=== PATIENT | female | born 1975 | race Caucasian/White ===

== ENCOUNTER 2022-02-16 18:32 | Emergency (ER) | payer SELFPAY ==
--- OUTSIDE RECORDS SUMMARY | 2022-02-16 18:36 | XMS REPORT | Continuity of Care Document ---
:1975 Author Organization [facility] t Address [address] [place] [address] Care Team Providers Name Role Phone Klever Attending Clinician Unavailable LUCA Attending Clinician Unavailable Klever Admitting Clinician Unavailable LUCA Admitting Clinician Unavailable Payers Payer Name Policy Type Policy Number Effective Date Expiration Date S ource Problems Condition Condition Condition Status Onset Resolution Last Treating Co mments Source Name Details Category Date Date Treatment Clinician Date Benign Benign Problem Active [place] paroxysmal Paroxysmal 5-24 da positional Positional 00:00: [facility] vertigo Vertigo 00 al [facility] Blood in Blood in Problem Active [place] urine Urine 5-24 da 00:00: [facility] Postural Postural Problem Active [place] dizziness Dizziness 5-24 da 00:00: [facility] Easy Easy Problem Active [place] bruising Bruising 5-24 da 00:00: [facility] Hypertensi Hypertensi Problem Active [facility] ve ve 1-18 da disorder Disorder 00:00: [facility] p 00 al [facility] Body mass Body Mass Problem Active 2020-03 [place] index 30+ Index 30+ 0-26 da - obesity - Obesity 00:00: Epis buffer copper 00 al [facility]re[facility] Dissection Dissection Problem Active 2020-03 M [place] of of 0-26 da abdominal Abdominal 00:00: Ep[facility] buffer copper aorta Aorta 00 al [facility] Shoulder Shoulder Problem Active 2020-03 [place] pain Pain 0-26 da 00:00: [facility] Injury of Injury of Problem Active [place] abdominal Abdominal 7-18 da aorta Aorta 00:00: [facility] Hyperlipid Hyperlipid Problem Active [facility] [place] emia emia 3-30 da 00:00: [facility] Stress Stress Problem Active [place] 3-29 da 00:00: [facility] Hypothyroi Hypothyroi Problem Active [facility] [place] dism dism 1- da 00:00: [facility] Obesity Obesity Problem Active [place] [facility] Allergies, Adverse Reactions, Alerts This patient has no known allergies or adverse reactions. Social History Smoking Status Start Date Stop Date Source Light Tobacco Smoker [facility] Medications Ordered Filled Start Stop Current Ordering Indication Dosage Frequency Signature Comments Components Source Medication Medication Date Date Medication? Clinician (SIG) Name Name acetaminoph acetaminoph 2020-03 No 650mg acetaminop [place] en 325 mg en 325 mg 0-26 hen 325 mg da tablet 650 tablet 650 00:00: tablet 650 [facility] mg by oral mg by oral 00 mg by oral al route. route. route. [facility] Outre[facility] Program Ala-Hist IR Ala-Hist IR No Ala-Hist [place] 2 mg tablet 2 mg tablet IR 2 mg da TAKE 1 TAKE 1 tablet [facility] TABLET BY TABLET BY TAKE 1 al MOUTH EVERY MOUTH EVERY TABLET BY Health 6 HOURS 6 HOURS MOUTH Ou treac NEEDED NEEDED EVERY 6 h HOURS Program NEEDED aspirin 81 aspirin 81 No aspirin 81 [place] mg chewable mg chewable mg d a tablet CHEW tablet CHEW chewable [facility] AND SWALLOW AND SWALLOW tablet al 1 TABLET BY 1 TABLET BY CHEW AND Health MOUTH DAILY MOUTH DAILY SWALLOW 1 Outreac TABLET BY h MOUTH Program DAILY clonidine clonidine No 1 Q1D clonidine [place] HCl 0.1 mg HCl 0.1 mg HCl 0.1 mg da tablet Take tablet Take tablet [facility] 1 tablet 1 tablet Take 1 al every day every day tablet Hea lth by oral by oral every day Outr eac route as route as by oral h directed. directed. route as P rogram directed. Debrox 6.5 Debrox 6.5 No Debrox 6.5 [place] % ear drops % ear drops % ear da INSTILL INSTILL drops [facility] 5-10 DROPS 5-10 DROPS INSTILL al INTO INTO 5-10 DROPS Health AFFECTED AFFECTED INTO Outreac EAR(S) BY EAR(S) BY AFFECTED h OTIC ROUTE OTIC ROUTE EAR(S) BY Program 2 TIMES PER 2 TIMES PER OTIC ROUTE DAY FOR 4 DAY FOR 4 2 TIMES DAYS DAYS PER DAY FOR 4 DAYS FeroSul 325 FeroSul 325 No FeroSul [place] mg (65 mg mg (65 mg 325 mg (65 da iron) iron) mg iron) [facility] tablet TAKE tablet TAKE tablet al 1 TABLET BY 1 TABLET BY TAKE 1 Health MOUTH EVERY MOUTH EVERY TABLET BY Outreac OTHER DAY OTHER DAY MOUTH h IN MORNING IN MORNING EVERY Pr ogram OTHER DAY IN MORNING levothyroxi levothyroxi No levothyrox [place] ne 75 mcg ne 75 mcg ine 75 mcg da tablet TAKE tablet TAKE tablet [facility] 1 TABLET BY 1 TABLET BY TAKE 1 al MOUTH EVERY MOUTH EVERY TABLET BY Health DAY FOR 45 DAY FOR 45 MOUTH Ou treac DAYS DAYS EVERY DAY h DIRECTED DIRECTED FOR 45 Progr am DAYS DIRECTED lisinopril lisinopril No lisinopril [place] 20 mg 20 mg 20 mg da tablet TAKE tablet TAKE tablet [facility] 1 TABLET BY 1 TABLET BY TAKE 1 al MOUTH EVERY MOUTH EVERY TABLET BY Health DAY DAY MOUTH Outreac DIRECTED DIRECTED EVERY DAY h Program DIRECTED meclizine meclizine No .5 Q6H meclizine [place] 25 mg 25 mg 25 mg da tablet Take tablet Take tablet [facility] 0.5 tablets 0.5 tablets Take 0.5 al every 6 every 6 tablets Health hours by hours by every 6 Outr eac oral route oral route hours by h as needed. as needed. oral route Program as needed. metoprolol metoprolol No metoprolol [place] tartrate 25 tartrate 25 tartrate da mg tablet mg tablet 25 mg Epis buffer copper TAKE 1/2 TAKE 1/2 tablet al TABLET BY TABLET BY TAKE 1/2 H ealth MOUTH TWICE MOUTH TWICE TABLET BY Outreac DAILY DAILY MOUTH h TWICE Program DAILY paroxetine paroxetine No paroxetine [place] ER 25 mg ER 25 mg ER 25 mg da tablet,exte tablet,exte tablet,ext [facility] nded nded ended al release 24 release 24 release 24 Health hr TAKE 2 hr TAKE 2 hr TAKE 2 Outreac TABLETS BY TABLETS BY TABLETS BY h MOUTH EVERY MOUTH EVERY MOUTH Program DAY AT DAY AT EVERY DAY BEDTIME BEDTIME AT BEDTIME rosuvastati rosuvastati No rosuvastat [place] n 10 mg n 10 mg in 10 mg da tablet TAKE tablet TAKE tablet [facility] 1 TABLET BY 1 TABLET BY TAKE 1 al MOUTH EVERY MOUTH EVERY TABLET BY Health DAY DAY MOUTH Outreac DIRECTED DIRECTED EVERY DAY h Program DIRECTED venlafaxine venlafaxine No 1capsul Q1D venlafaxin [place] ER 75 mg ER 75 mg e(s) e ER 75 mg d a capsule,ext capsule,ext capsule,ex [facility] ended ended tended al release 24 release 24 release 24 Health hr Take 1 hr Take 1 hr Take 1 Outreac capsule capsule capsule h every day every day every day Program by oral by oral by oral route as route as route as directed. directed. directed. Immunizations Ordered Immunization Filled Immunization Date Status Commen ts Source Name Name pneumococcal pneumococcal 2020-07-02 Completed [facility] polysaccharide PPV23 polysaccharide PPV23 10:54:25 [facility] Tdap Tdap 2020-07-02 Completed [facility] 10:53:29 [facility] Vital Signs Vital Name Observation Time Observation Value Comments Source BP Diastolic 2021-09-10 00:00:00 74 mm[Hg] [facility] Height 2021-09-10 00:00:00 59 [in_i] [facility] BMI (Body Mass 2021-09-10 00:00:00 [facility] BP Systolic 2021-09-10 00:00:00 135 mm[Hg] [facility] Body Weight 2021-09-10 00:00:00 2611 [oz_av] [facility] BP Diastolic 2021-07-27 00:00:00 80 mm[Hg] [place] [facility] Height 2021-07-27 00:00:00 59 [in_i] [place] [facility] BMI (Body Mass 2021-07-27 00:00:00 32.5 kg/m2 [place] [facility] Index) [facility] BP Systolic 2021-07-27 00:00:00 132 mm[Hg] [place] [facility] Body Weight 2021-07-27 00:00:00 2576 [oz_av] [place] [facility] BP Diastolic 2021-05-14 00:00:00 64 mm[Hg] [place] [facility] Height 2021-05-14 00:00:00 59 [in_i] [place] [facility] BMI (Body Mass 2021-05-14 00:00:00 31.9 kg/m2 [facility] BP Systolic 2021-05-14 00:00:00 112 mm[Hg] [place] [facility] Body Weight 2021-05-14 00:00:00 2528 [oz_av] [place] [facility] BP Diastolic 2021-02-17 00:00:00 74 mm[Hg] [place] [facility] Height 2021-02-17 00:00:00 59 [in_i] [place] [facility] BMI (Body Mass 2021-02-17 00:00:00 30.5 kg/m2 [facility] BP Systolic 2021-02-17 00:00:00 116 mm[Hg] [place] [facility] Body Weight 2021-02-17 00:00:00 2416 [oz_av] [place] [facility] BP Diastolic 2021-01-01 00:00:00 52 mm[Hg] [place] [facility] Height 2021-01-01 00:00:00 59 [in_i] [place] [facility] BMI (Body Mass 2021-01-01 00:00:00 30.5 kg/m2 [place] [facility] BP Systolic 2021-01-01 00:00:00 101 mm[Hg] [place] [facility] Body Weight 2021-01-01 00:00:00 2416 [oz_av] [place] [facility] BP Diastolic 2020-11-02 00:00:00 74 mm[Hg] [place] [facility] Height 2020-11-02 00:00:00 59 [in_i] [place] [facility] BMI (Body Mass 2020-11-02 00:00:00 30.5 kg/m2 [facility] BP Systolic 2020-11-02 00:00:00 145 mm[Hg] [place] [facility] Body Weight 2020-11-02 00:00:00 151 [lb_av] [place] [facility] BP Diastolic 2020-10-26 00:00:00 80 mm[Hg] [place] [facility] Height 2020-10-26 00:00:00 59 [in_i] [place] [facility] BMI (Body Mass 2020-10-26 00:00:00 30.3 kg/m2 [facility] Index[facility] BP Systolic 2020-10-26 00:00:00 130 mm[Hg] [place] [facility] Body Weight 2020-10-26 00:00:00 2400 [oz_av] [place] [facility] BP Diastolic 2020-10-01 00:00:00 72 mm[Hg] [place] [facility] Height 2020-10-01 00:00:00 59 [in_i] [place] [facility] BMI (Body Mass 2020-10-01 00:00:00 30.8 kg/m2 [facility] BP Systolic 2020-10-01 00:00:00 126 mm[Hg] [place] [facility] Body Weight 2020-10-01 00:00:00 2437 [oz_av] [place] [facility] BP Diastolic 2020-08-18 00:00:00 82 mm[Hg] [place] [facility] Height 2020-08-18 00:00:00 59 [in_i] [place] [facility] BMI (Body Mass 2020-08-18 00:00:00 31.9 kg/m2 [facility] BP Systolic 2020-08-18 00:00:00 132 mm[Hg] [place] [facility] Body Weight 2020-08-18 00:00:00 2528 [oz_av] [place] [facility] BP Diastolic 2020-07-02 00:00:00 78 mm[Hg] [place] [facility] Height 2020-07-02 00:00:00 59 [in_i] [place] [facility] BMI (Body Mass 2020-07-02 00:00:00 34.3 kg/m2 [facility] BP Systolic 2020-07-02 00:00:00 124 mm[Hg] [place] [facility] Body Weight 2020-07-02 00:00:00 2720 [oz_av] [facility] BP Diastolic 2020-06-01 00:00:00 90 mm[Hg] [place] [facility] Height 2020-06-01 00:00:00 59 [in_i] [place] [facility] BMI (Body Mass 2020-06-01 00:00:00 36.4 kg/m2 [facility] Index[facility] BP Systolic 2020-06-01 00:00:00 140 mm[Hg] [place] [facility] Body Weight 2020-06-01 00:00:00 2880 [oz_av] [facility] Procedures Procedure Date / Time Performed Performing Clinician Sourc e MAMMO, screening, 2021-09-10 00:00:00 [facility] digital, bilateral Health Outrea Program MAMMO, screening, 2020-07-02 00:00:00 [facility] digital, bilateral Health Outrea ch Program ELECTROCARDIOGRAM, 2020-06-01 00:00:00 [facility] COMPLETE [facility] Out[facility] Program XR, hand 2020-06-01 00:00:00 [facility] Section [facility] Endometrial Ablation [facility] Plan of Care Planned Activity Planned Date Details Comments Source Future Scheduled 2021-09-14 CBC w/ auto diff [code [place] Test 00:00:00 = CBC w/ auto diff] [facility] Future Scheduled 2021-09-14 CMP, serum or plasma [place] Test 00:00:00 [code = CMP, serum or [facility] plasma] Outreach Progra m Diagnostic Test 2021-09-10 fecal occult blood, [place] Pending 00:00:00 immunoassay, stool [facility] [code = fecal occult Outreac h Program blood, immunoassay, stool] Diagnostic Test 2021-09-10 erythrocyte [facility] Pending 00:00:00 sedimentation rate by [facility] westergren method Outreach P rogram [code = erythrocyte sedimentation rate by westergren method] Future Appointment 2022-03-13 Codie Pizano 1700 [place] 00:00:00 Ajith Vargas; [place] [address] Outreach Program Future Appointment 2022-03-11 Codie Pizano 1700 [place] 14:00:00 Ajith Vargas; [place] [id number] Outreach Program Encounters Start End Encounter Admission Attending Care Care Encounter Source Date/Time Date/Time Type Type Clinicians Facility Department ID 2022-02-01 2022-02-01 Outpatient Klever CARBAJAL [facility] [id number] [place] 00:00:00 00:00:00 [id number] [facility] 2021-09-22 2021-09-22 Outpatient Klever CARBAJAL [facility] [id number] [place] 12:29:00 12:29:00 0720 [facility] 2021-09-20 2021-09-20 Outpatient Nguyen_Tho NCHOP N[facility]OP [id number] [place] 02:45:00 02:45:00 0718 [facility] 2021-09-17 2021-09-17 Outpatient Nguyen_Tho MEHOP NCHOP [id number] [place] 04:58:00 04:58:00 0715 da [facility] 2021-09-11 2021-09-11 Outpatient Nguyen_Tho NCHOP N[facility] [id number] [place] 08:27:00 08:27:00 0709 da [facility] 2021-09-10 2021-09-10 Outpatient Nguyen_Tho NCHOP [facility] [id number] [place] 04:53:00 04:53:00 0708 da [facility] 2021-09-10 2021-09-10 [facility] [place] - [id number] [place] 00:00:00 00:00:00 Lanie Pizano APRN-MUFF WINDER-C: [facility] Epi scop [address] [facility] [phone] Jong iverson , Ph. 2021-09-09 2021-09-09 Outpatient Nguyen_Tho NCHOP [facility] [id number] [place] 04:12:00 04:12:00 0707 da [facility] 2021-08-25 2021-08-25 Outpatient Nguyen_Tho NCHOP [facility] [id number] [place] 04:12:00 04:12:00 0622 [facility] 2021-07-27 2021-07-27 Outpatient Nguyen_Tho NCHOP [facility] [id number] [place] 10:40:00 10:40:00 0524 [facility] 2021-07-27 2021-07-[address] [facility] [place] - [id number] [place] 00:00:00 00:00:00 Lanie Pizano da SUBCONTRACT MANAGER-MUFF WINDER-C: [facility] [address] [facility] [address], [facility] [phone] [facility] , Ph. 2021-07-25 2021-07-25 Outpatient Nguyen_Tho [facility] [id number] [place] 11:16:00 11:16:00 0522 [facility] 2021-07-13 2021-07-13 Outpatient Nguyen_Tho [place] [id number] [place] 08:07:00 08:07:00 0510 [facility] 2021-07-01 2021-07-01 Outpatient AMBREEN_[place]AR [place] [id number] [place] 10:45:00 10:45:00 HANA 0428 da [facility] 2021-06-14 2021-06-14 Outpatient AMBREEN_[place] [id number] [place] 12:59:00 12:59:00 HANA 0411 da [facility] 2021-06-09 2021-06-09 Outpatient AM[place]EN_[place] [id number] [place] 03:29:00 03:29:00 HANA 0406 da [facility] 2021-06-03 2021-06-03 Outpatient AMBREEN_[place] [id number] [place] 09:08:00 09:08:00 HANA 0331 da [facility] 2021-05-14 2021-05-14 Outpatient AMBREEN_[place] [id number] [place] 04:59:00 04:59:00 HANA 0311 da [facility] 2021-05-14 2021-05-14 [facility] [place] - [id number] [place] 00:00:00 00:00:00 Lanie Pizano da SUBCONTRACT MANAGER-MUFF WINDER-C: [facility] [facility] [phone] Progr am , Ph. 2021-05-13 2021-05-13 Outpatient AMBREEN[place] [id number] [place] 11:47:00 11:47:00 HANA 0310 da [facility] 2021-05-12 2021-05-12 Outpatient AMBREEN_[place] [id number] [place] 10:11:00 10:11:00 HANA 0309 da [facility] 2021-03-22 2021-03-22 Outpatient AM[place]EN_[place] [id number] [place] 02:49:00 02:49:00 HANA 0117 da [facility] 2021-02-17 2021-02-17 Outpatient AMBREEN_[place] [id number] [place] 03:54:00 03:54:00 HANA 1215 da [facility] 2021-02-17 2021[facility]02-[facility] [place] [facility] [id number] [place] 00:00:00 00:00:00 Lanie Pizano da SUBCONTRACT MANAGER-MUFF WINDER-C: [facility] [address] [facility] [phone] Jong am , Ph. 2021-01-01 2021-01-01 Outpatient [place] [id number] [place] 03:27:00 03:27:00 HANA 1029 da [facility] 2021-01-01 2021-01-01 [facility] [place] [facility] [id number] [place] 00:00:00 00:00:00 Lanie Pizano da SUBCONTRACT MANAGER-MUFF WINDER-C: [facility] [address] [facility] [phone] Progr am , Ph. 2020-12-22 2020-12-22 Outpatient AMBREEN_FAR [place]CHOP [place] [id number] [place] 03:12:00 03:12:00 HANA 1019 da [facility] 2020-12-18 2020-12-18 Outpatient AMBREEN_FAR NCHOP [place] [id number] [place] 03:51:00 03:51:00 HANA 1015 da [facility] 2020-11-02 2020-11-02 Outpatient AMBREEN_FAR NCHOP [place] [id number] [place] 05:45:00 05:45:00 HANA 0830 [facility] 2020-11-02 2020-11-02 Isaíaslorraine Rayn [facility] [place] - [id number] [place] 00:00:00 00:00:00 Lanie Terrell MD: [id number] [facility] Epis buffer copper [address] [facility] [address], [facility] Program [phone] , Ph. 2020-10-27 2020-10-27 Outpatient [place] [id number] [place] 08:15:00 08:15:00 HANA 0824 [facility] 2020-10-26 2020-10-26 Outpatient AM[place]EN[place] [id number] [place] 04:04:00 04:04:00 HANA 0823 [facility] 2020-10-26 2020-10-26 [facility] [place] - [id number] M [place] 00:00:00 00:00:00 Lanie Pizano SUBCONTRACT MANAGER-MUFF WINDER-C: [facility] [facility] [address] Jong , Ph. 2020-10-25 2020-10-25 Outpatient AMBREEN[place] [id number] [place] 07:48:00 07:48:00 HANA 0822 [facility] 2020-10-01 2020-10-01 Outpatient AMBREEN_[place]AR [place] [id number] [place] 11:10:00 11:10:00 HANA 0729 da [facility] 2020-10-01 2020-10-01 [facility] [place] - [id number] [place] 00:00:00 00:00:00 Lanie Pizano da SUBCONTRACT MANAGER-MUFF WINDER-C: [facility] 17[address] [facility] [phone] [facility] am , Ph. 2020-09-08 2020-09-08 Outpatient AMBREEN_FAR [place] [id number] [place] 09:07:00 09:07:00 HANA 0706 da [facility] 2020-08-31 2020-08-31 Outpatient AMBREEN_FAR [place] [id number] [place] 04:33:00 04:33:00 HANA 0628 [facility] 2020-08-18 2020-08-18 Outpatient AMBREEN_[place]AR [place] [id number] [place] 11:25:00 11:25:00 HANA 0615 [facility] 2020-08-18 2020-08-18 [facility] [place] - [id number] [place] 00:00:00 00:00:00 Lanie Pizano SUBCONTRACT MANAGER-MUFF WINDER-C: [facility] [address] [facility] [phone] [facility] , Ph. 2020-08-16 2020-08-16 Outpatient AMBREEN_FAR [place] [id number] [place] 01:16:00 01:16:00 HANA 0613 da [facility] 2020-08-12 2020-08-12 Outpatient AMBREEN_FAR [place] [id number] [place] 09:33:00 09:33:00 HANA 0609 da [facility] 2020-07-02 2020-07-02 Outpatient AM[place] [id number] [place] 09:51:00 09:51:00 HANA 0429 [facility] 2020-07-02 2020-07-02 [facility] [place] - [id number] [place] 00:00:00 00:00:00 Lanie Pizano da SUBCONTRACT MANAGER-MUFF WINDER-C: [facility] [address] [place] [address] Jong ivesron , Ph. 2020-06-02 2020-06-02 Outpatient [place] [id number] [place] 11:35:00 11:35:00 HANA 0330 [facility] 2020-06-01 2020-06-01 Outpatient AM[place]EN[place] [id number] [place] 05:34:00 05:34:00 HANA 0329 da [facility] 2020-06-01 2020-06-01 [facility] [id number] [place]agor 00:00:00 00:00:00 Lanie Pizano da SUBCONTRACT MANAGER-MUFF WINDER-C: [facility] [address] [place] [address] Jong iverson , Ph. 2020-05-28 2020-05-28 Outpatient [place] [id number] [place] 02:57:00 02:57:00 HANA 0325 da [facility] Results Test Description Test Time Test Comments Results Result Comments Source cardiovascular assessment panel, serum 2021-02-18 00:00:00 Test Item Value Reference Range Interpretation Comme nts Interpretation and review of laboratory results (test code = 45930- 1) note Report (test code = 36232-1) . [facility] panel - Serum or Plasma 2021-02-10 00:00:00 Test Item Value Reference Range Interpretation Comments Cholesterol [Mass/volume] in Serum 171 mg/dL 100-199 or Plasma (test code = 2093-3) Triglyceride [Mass/volume] in Serum 139 mg/dL 0-149 or Plasma (test code = 2571-8) Cholesterol in HDL [Mass/volume] in 50 mg/dL >39 Serum or Plasma (test code = 2085-9) Cholesterol in VLDL [Mass/volume] 24 mg/dL 5-40 in Serum or Plasma by calculation (test code = 81486-6) Cholesterol in LDL [Mass/volume] in 97 mg/dL 0-99 Serum or Plasma by calculation (test code = 92481-0) Laboratory comment [Text] in Report mark up designer Narrative (test code = 67340-4) [facility]] in Serum or Plasma by Detection limit <= 0.005 mIU/[id number] 00:00:00 Test Item Value Reference Range Interpretation Comments Thyrotropin [Units/volume] in 0.280 uIU/mL 0.450-4.500 L Serum or Plasma by Detection limit <= 0.005 mIU/L (test code = 39271-8) [facility], [id number] 00:00:00 Test Item Value Reference Range Interpretation Comments Interpretation and review of laboratory note results (test code = 02022-4) Report (test code = 57666-3) . [facility] - Blood 2020-10-27 00:00:00 Test Item Value Reference Range Interpretation Comments Leukocytes [#/volume] in Blood 6.1 x10e3/uL 3.4-10.8 by Automated count (test code = 6690-2) Erythrocytes [#/volume] in 4.04 x10e6/uL 3.77-5.28 Blood by Automated count (test code = 789-8) Hemoglobin [Mass/volume] in 11.3 g/dL 11.1-15.9 Blood (test code = 718-7) Hematocrit [Volume Fraction] of 34.8 % 34.0-46.6 Blood by Automated count (test code = 4544-3) MCV [Entitic volume] by 86 fL 79-97 Automated count (test code = 787-2) MCH [Entitic mass] by Automated 28.0 pg 26.6-33.0 count (test code = 785-6) MCHC [Mass/volume] by Automated 32.5 g/dL 31.5-35.7 count (test code = 786-4) Erythrocyte distribution width 15.9 % 11.7-15.4 H [Ratio] by Automated count (test code = 788-0) Platelets [#/volume] in Blood 274 x10e3/uL 150-450 by Automated count (test code = 777-3) Neutrophils/100 leukocytes in 54 % not estab. Blood by Automated count (test code = 770-8) Lymphocytes/100 leukocytes in 34 % not estab. Blood by Automated count (test code = 736-9) Monocytes/100 leukocytes in 8 % not estab. Blood by Automated count (test code = 5905-5) Eosinophils/100 leukocytes in 3 % not estab. Blood by Automated count (test code = 713-8) Basophils/100 leukocytes in 1 % not estab. Blood by Automated count (test code = 706-2) immature cells (test code = mark up designer immature cells) Neutrophils [#/volume] in Blood 3.3 x10e3/uL 1.4-7.0 by Automated count (test code = 751-8) Lymphocytes [#/volume] in Blood 2.1 x10e3/uL 0.7-3.1 by Automated count (test code = 731-0) Monocytes [#/volume] in Blood 0.5 x10e3/uL 0.1-0.9 by Automated count (test code = 742-7) Eosinophils [#/volume] in Blood 0.2 x10e3/uL 0.0-0.4 by Automated count (test code = 711-2) Basophils [#/volume] in Blood 0.1 x10e3/uL 0.0-0.2 by Automated count (test code = 704-7) Immature granulocytes/100 0 % not estab. leukocytes in Blood by Automated count (test code = 87512-7) Immature granulocytes 0.0 x10e3/uL 0.0-0.1 [#/volume] in Blood by Automated count (test code = 43921-3) Nucleated erythrocytes/100 mark up designer leukocytes [Ratio] in Blood by Automated count (test code = 88115-2) Morphology [Interpretation] in mark up designer Blood Narrative (test code = 50897-7) [facility] - Serum or [id number] 00:00:00 Test Item Value Reference Range Interpretation Comments Glucose [Mass/volume] in 82 mg/dL 65-99 Serum or Plasma (test code = 2345-7) Urea nitrogen [Mass/volume] 9 mg/dL 6-24 in Serum or Plasma (test code = 3094-0) Creatinine [Mass/volume] in 0.72 mg/dL 0.57-1.00 Serum or Plasma (test code = 2160-0) Glomerular filtration 101 mL/min/1.73 >59 rate/1.73 sq M.predicted among non-blacks [Volume Rate/Area] in Serum, Plasma or Blood by Creatinine-based formula (CKD-EPI) (test code = 66340-3) Glomerular filtration 116 mL/min/1.73 >59 rate/1.73 sq M.predicted among blacks [Volume Rate/Area] in Serum, Plasma or Blood by Creatinine-based formula (CKD-EPI) (test code = 57211-3) Urea nitrogen/Creatinine 13 9-23 [Mass Ratio] in Serum or Plasma (test code = 3097-3) Sodium [Moles/volume] in 143 mmol/L 134-144 Serum or Plasma (test code = 2951-2) Potassium [Moles/volume] in 3.9 mmol/L 3.5-5.2 Serum or Plasma (test code = 2823-3) Chloride [Moles/volume] in 104 mmol/L 96-106 Serum or Plasma (test code = 2075-0) Carbon dioxide, total 26 mmol/L 20-29 [Moles/volume] in Serum or Plasma (test code = 2027-9) Calcium [Mass/volume] in 9.8 mg/dL 8.7-10.2 Serum or Plasma (test code = 35263-4) Protein [Mass/volume] in 6.4 g/dL 6.0-8.5 Serum or Plasma (test code = 2885-2) Albumin [Mass/volume] in 4.0 g/dL 3.8-4.8 Serum or Plasma (test code = 1751-7) Globulin [Mass/volume] in 2.4 g/dL 1.5-4.5 Serum by calculation (test code = 93903-0) Albumin/Globulin [Mass Ratio] 1.7 1.2-2.2 in Serum or Plasma (test code = 1759-0) Bilirubin.total [Mass/volume] <0.2 0.0-1.2 in Serum or Plasma (test code = 1975-2) Alkaline phosphatase 73 IU/L 48-121 [Enzymatic activity/volume] in Serum or Plasma (test code = 6768-6) Aspartate aminotransferase 20 IU/L 0-40 [Enzymatic activity/volume] in Serum or Plasma (test code = 1920-8) Alanine aminotransferase 23 IU/L 0-32 [Enzymatic activity/volume] in Serum or Plasma (test code = 1742-6) [facility] Serum or [id number] 00:00:00 Test Item Value Reference Range Interpretation Comments Thyrotropin [Units/volume] in 0.566 uIU/mL 0.450-4.500 Serum or Plasma by Detection limit <= 0.005 mIU/L (test code = 10958-1) Thyroxine (T4) free 1.67 NG/dL 0.82-1.77 [Mass/volume] in Serum or Plasma (test code = 3024-7) [facility] - Blood 2020-10-02 00:00:00 Test Item Value Reference Range Interpretation Comments Leukocytes [#/volume] in Blood 6.6 x10e3/uL 3.4-10.8 by Automated count (test code = 6690-2) Erythrocytes [#/volume] in 3.91 x10e6/uL 3.77-5.28 Blood by Automated count (test code = 789-8) Hemoglobin [Mass/volume] in 11.0 g/dL 11.1-15.9 L Blood (test code = 718-7) Hematocrit [Volume Fraction] of 34.0 % 34.0-46.6 Blood by Automated count (test code = 4544-3) MCV [Entitic volume] by 87 fL 79-97 Automated count (test code = 787-2) MCH [Entitic mass] by Automated 28.1 pg 26.6-33.0 count (test code = 785-6) MCHC [Mass/volume] by Automated 32.4 g/dL 31.5-35.7 count (test code = 786-4) Erythrocyte distribution width 14.6 % 11.7-15.4 [Ratio] by Automated count (test code = 788-0) Platelets [#/volume] in Blood 345 x10e3/uL 150-450 by Automated count (test code = 777-3) Neutrophils/100 leukocytes in 59 % not estab. Blood by Automated count (test code = 770-8) Lymphocytes/100 leukocytes in 28 % not estab. Blood by Automated count (test code = 736-9) Monocytes/100 leukocytes in 8 % not estab. Blood by Automated count (test code = 5905-5) Eosinophils/100 leukocytes in 4 % not estab. Blood by Automated count (test code = 713-8) Basophils/100 leukocytes in 1 % not estab. Blood by Automated count (test code = 706-2) immature cells (test code = mark up designer immature cells) Neutrophils [#/volume] in Blood 4.0 x10e3/uL 1.4-7.0 by Automated count (test code = 751-8) Lymphocytes [#/volume] in Blood 1.8 x10e3/uL 0.7-3.1 by Automated count (test code = 731-0) Monocytes [#/volume] in Blood 0.5 x10e3/uL 0.1-0.9 by Automated count (test code = 742-7) Eosinophils [#/volume] in Blood 0.2 x10e3/uL 0.0-0.4 by Automated count (test code = 711-2) Basophils [#/volume] in Blood 0.0 x10e3/uL 0.0-0.2 by Automated count (test code = 704-7) Immature granulocytes/100 0 % not estab. leukocytes in Blood by Automated count (test code = 68776-1) Immature granulocytes 0.0 x10e3/uL 0.0-0.1 [#/volume] in Blood by Automated count (test code = 18546-9) Nucleated erythrocytes/100 mark up designer leukocytes [Ratio] in Blood by Automated count (test code = 28535-9) Morphology [Interpretation] in mark up designer Blood Narrative (test code = 97548-4) [facility] 2000 [facility] - Serum or [id number] 00:00:00 Test Item Value Reference Range Interpretation Comments Glucose [Mass/volume] in 84 mg/dL 65-99 Serum or Plasma (test code = 2345-7) Urea nitrogen [Mass/volume] 13 mg/dL 6-24 in Serum or Plasma (test code = 3094-0) Creatinine [Mass/volume] in 0.59 mg/dL 0.57-1.00 Serum or Plasma (test code = 2160-0) Glomerular filtration 110 mL/min/1.73 >59 rate/1.73 sq M.predicted among non-blacks [Volume Rate/Area] in Serum, Plasma or Blood by Creatinine-based formula (CKD-EPI) (test code = 26695-6) Glomerular filtration 127 mL/min/1.73 >59 rate/1.73 sq M.predicted among blacks [Volume Rate/Area] in Serum, Plasma or Blood by Creatinine-based formula (CKD-EPI) (test code = 04435-8) Urea nitrogen/Creatinine 22 9-23 [Mass Ratio] in Serum or Plasma (test code = 3097-3) Sodium [Moles/volume] in 142 mmol/L 134-144 Serum or Plasma (test code = 2951-2) Potassium [Moles/volume] in 4.5 mmol/L 3.5-5.2 Serum or Plasma (test code = 2823-3) Chloride [Moles/volume] in 102 mmol/L 96-106 Serum or Plasma (test code = 2075-0) Carbon dioxide, total 26 mmol/L 20-29 [Moles/volume] in Serum or Plasma (test code = 2027-9) Calcium [Mass/volume] in 9.2 mg/dL 8.7-10.2 Serum or Plasma (test code = 81129-1) Protein [Mass/volume] in 6.1 g/dL 6.0-8.5 Serum or Plasma (test code = 2885-2) Albumin [Mass/volume] in 3.7 g/dL 3.8-4.8 L Serum or Plasma (test code = 1751-7) Globulin [Mass/volume] in 2.4 g/dL 1.5-4.5 Serum by calculation (test code = 22162-8) Albumin/Globulin [Mass Ratio] 1.5 1.2-2.2 in Serum or Plasma (test code = 1759-0) Bilirubin.total [Mass/volume] <0.2 0.0-1.2 in Serum or Plasma (test code = 1975-2) Alkaline phosphatase 76 IU/L 48-121 [Enzymatic activity/volume] in Serum or Plasma (test code = 6768-6) Aspartate aminotransferase 12 IU/L 0-40 [Enzymatic activity/volume] in Serum or Plasma (test code = 1920-8) Alanine aminotransferase 11 IU/L 0-32 [Enzymatic activity/volume] in Serum or Plasma (test code = 1742-6) [facility] HospitalAmylase and triacylglycerol lipase panel - Serum or [id number] 00:00:00 Test Item Value Reference Range Interpretation Comments Amylase [Enzymatic activity/volume] in 50 U/L 31-110 Serum or Plasma (test code = 1798-8) Lipase [Enzymatic activity/volume] in 76 U/L 14-72 H Serum or Plasma (test code = 3040-3) [facility] TSH [facility] - Serum or [id number] 00:00:00 Test Item Value Reference Range Interpretation Comments Thyrotropin [Units/volume] in 97.800 uIU/mL 0.450-4.500 H Serum or Plasma by Detection limit <= 0.005 mIU/L (test code = 89202-9) Thyroxine (T4) free <0.10 0.82-1.77 L [Mass/volume] in Serum or Plasma (test code = 3024-7) [facility] - Blood 2020-06-02 00:00:00 Test Item Value Reference Range Interpretation Comments Leukocytes [#/volume] in Blood 5.5 x10e3/uL 3.4-10.8 by Automated count (test code = 6690-2) Erythrocytes [#/volume] in 3.65 x10e6/uL 3.77-5.28 L Blood by Automated count (test code = 789-8) Hemoglobin [Mass/volume] in 11.5 g/dL 11.1-15.9 Blood (test code = 718-7) Hematocrit [Volume Fraction] of 34.4 % 34.0-46.6 Blood by Automated count (test code = 4544-3) MCV [Entitic volume] by 94 fL 79-97 Automated count (test code = 787-2) MCH [Entitic mass] by Automated 31.5 pg 26.6-33.0 count (test code = 785-6) MCHC [Mass/volume] by Automated 33.4 g/dL 31.5-35.7 count (test code = 786-4) Erythrocyte distribution width 13.2 % 11.7-15.4 [Ratio] by Automated count (test code = 788-0) Platelets [#/volume] in Blood 229 x10e3/uL 150-450 by Automated count (test code = 777-3) Neutrophils/100 leukocytes in 50 % not estab. Blood by Automated count (test code = 770-8) Lymphocytes/100 leukocytes in 39 % not estab. Blood by Automated count (test code = 736-9) Monocytes/100 leukocytes in 7 % not estab. Blood by Automated count (test code = 5905-5) Eosinophils/100 leukocytes in 3 % not estab. Blood by Automated count (test code = 713-8) Basophils/100 leukocytes in 1 % not estab. Blood by Automated count (test code = 706-2) immature cells (test code = mark up designer immature cells) Neutrophils [#/volume] in Blood 2.7 x10e3/uL 1.4-7.0 by Automated count (test code = 751-8) Lymphocytes [#/volume] in Blood 2.2 x10e3/uL 0.7-3.1 by Automated count (test code = 731-0) Monocytes [#/volume] in Blood 0.4 x10e3/uL 0.1-0.9 by Automated count (test code = 742-7) Eosinophils [#/volume] in Blood 0.2 x10e3/uL 0.0-0.4 by Automated count (test code = 711-2) Basophils [#/volume] in Blood 0.1 x10e3/uL 0.0-0.2 by Automated count (test code = 704-7) Immature granulocytes/100 0 % not estab. leukocytes in Blood by Automated count (test code = 19494-5) Immature granulocytes 0.0 x10e3/uL 0.0-0.1 [#/volume] in Blood by Automated count (test code = 93746-7) Nucleated erythrocytes/100 mark up designer leukocytes [Ratio] in Blood by Automated count (test code = 28314-8) Morphology [Interpretation] in mark up designer Blood Narrative (test code = 72456-8) [facility] 2000 [facility] - Serum or [id number] 00:00:00 Test Item Value Reference Range Interpretation Comments Glucose [Mass/volume] in Serum 84 mg/dL 65-99 or Plasma (test code = 2345-7) Urea nitrogen [Mass/volume] in 16 mg/dL 6-24 Serum or Plasma (test code = 3094-0) Creatinine [Mass/volume] in 1.21 mg/dL 0.57-1.00 H Serum or Plasma (test code = 2160-0) Glomerular filtration 54 mL/min/1.73 >59 L rate/1.73 sq M.predicted among non-blacks [Volume Rate/Area] in Serum, Plasma or Blood by Creatinine-based formula (CKD-EPI) (test code = 38133-2) Glomerular filtration 62 mL/min/1.73 >59 rate/1.73 sq M.predicted among blacks [Volume Rate/Area] in Serum, Plasma or Blood by Creatinine-based formula (CKD-EPI) (test code = 59981-4) Urea nitrogen/Creatinine [Mass 13 9-23 Ratio] in Serum or Plasma (test code = 3097-3) Sodium [Moles/volume] in Serum 139 mmol/L 134-144 or Plasma (test code = 2951-2) Potassium [Moles/volume] in 4.3 mmol/L 3.5-5.2 Serum or Plasma (test code = 2823-3) Chloride [Moles/volume] in 100 mmol/L 96-106 Serum or Plasma (test code = 2075-0) Carbon dioxide, total 25 mmol/L 20-29 [Moles/volume] in Serum or Plasma (test code = 2027-9) Calcium [Mass/volume] in Serum 9.8 mg/dL 8.7-10.2 or Plasma (test code = 54999-3) Protein [Mass/volume] in Serum 7.6 g/dL 6.0-8.5 or Plasma (test code = 2885-2) Albumin [Mass/volume] in Serum 4.9 g/dL 3.8-4.8 H or Plasma (test code = 1751-7) Globulin [Mass/volume] in 2.7 g/dL 1.5-4.5 Serum by calculation (test code = 58151-4) Albumin/Globulin [Mass Ratio] 1.8 1.2-2.2 in Serum or Plasma (test code = 1759-0) Bilirubin.total [Mass/volume] 0.5 mg/dL 0.0-1.2 in Serum or Plasma (test code = 1975-2) Alkaline phosphatase 52 IU/L 39-117 [Enzymatic activity/volume] in Serum or Plasma (test code = 6768-6) Aspartate aminotransferase 38 IU/L 0-40 [Enzymatic activity/volume] in Serum or Plasma (test code = 1920-8) Alanine aminotransferase 24 IU/L 0-32 [Enzymatic activity/volume] in Serum or Plasma (test code = 1742-6) [facility] 1996 [facility] - Serum or Plasma 2020-06-02 00:00:00 Test Item Value Reference Range Interpretation Comments Cholesterol [Mass/volume] in Serum 358 mg/dL 100-199 H or Plasma (test code = 2093-3) Triglyceride [Mass/volume] in Serum 159 mg/dL 0-149 H or Plasma (test code = 2571-8) Cholesterol in HDL [Mass/volume] in 49 mg/dL >39 Serum or Plasma (test code = 2085-9) Cholesterol in VLDL [Mass/volume] 31 mg/dL 5-40 in Serum or Plasma by calculation (test code = 14588-7) Cholesterol in LDL [Mass/volume] in 278 mg/dL 0-99 H Serum or Plasma by calculation (test code = 81218-0) Laboratory comment [Text] in Report mark up designer Narrative (test code = 03215-3) [facility], [id number] 00:00:00 Test Item Value Reference Range Interpretation Comments Interpretation and review of note laboratory results (test code = 30532-0) Report (test code = 96902-9) not applicable [facility] CKD [id number] 00:00:00 Test Item Value Reference Range Interpretation Comments Report (test code = 51956-8) note Interpretation and review of laboratory . results (test code = 25104-9) [facility] HospitalHemoglobin A1c/Hemoglobin.total in [id number] 00:00:00 Test Item Value Reference Range Interpretation Comments Hemoglobin A1c/Hemoglobin.total in 5.4 % 4.8-5.6 Blood (test code = 4548-4) Glucose mean value [Mass/volume] in 108 mg/dL Blood Estimated from glycated hemoglobin (test code = 96764-7) [facility] HospitalHIV 1+2 Ab+HIV1 p24 Ag [Presence] in Serum or Plasma by [id number] 00:00:00 Test Item Value Reference Range Interpretation Comments HIV 1+2 Ab+HIV1 p24 Ag non reactive non reactive [Presence] in Serum or Plasma by Immunoassay (test code = 06184-6) [facility]
[2022-02-16] MEDS ORDERED: MORPHINE 4 MG/ML SYR ONE ×2 (19:02→22:55)
[2022-02-16] MEDS ORDERED: ONDANSETRON 4 MG/2 ML VIAL ONE ×2 (19:02→22:55)
[2022-02-16 19:13] LABS: Protime INR 0.99
[2022-02-16 19:14] LABS: Absolute Lymphocytes (CBC) 2.1 K/uL (0.7-4.9); Lymphocytes % 31.5 % (15.3-44.8); MCV 93.9 fL (80-100); RBC Red Blood Cell Count 4.37 M/uL (3.86-4.86)
[2022-02-16 19:22] LABS: Magnesium 2.1 mg/dL (1.6-2.4); Potassium 3.8 mmol/L (3.5-5.1)
--- NOTE | 2022-02-16 21:09 | RAD REPORT ---
EXAM DESCRIPTION: CT - Angio Aorta For Dissection - 02/16/2022 8:43 pm CLINICAL HISTORY: . Chest and abd pain COMPARISON: None TECHNIQUE: Computed tomography angiography of the chest, abdomen pelvis were obtained. 100 cc Isovue 370 was administered intravenously. Coronal and sagittal reconstruction were performed. MIP 3D reconstruction was performed All CT scans are performed using dose optimization technique as appropriate and may include automated exposure control or mA/KV adjustment according to patient size. FINDINGS: Coarctation proximal descending thoracic aorta 5 centimeter dissection craniocaudal length involves the lower abdominal aorta. Most of the right por tion of the dissection is thrombosed. The dissection extends into the right common iliac artery. The celiac, SMA and BALBINA are patent . A lung consolidation is not present. A pericardial effusion is not seen. A pleural effusion is not no gerda. Mild hepatomegaly Spleen, pancreas,adrenals and kidneys demonstrate no significant abnormality. There no evidence diverticulitis. Normal appendix. Tubal ligation clips A 2.3 centimeter low-density mass abuts the left aspect of the uterus. This could represent an ovaria n cyst or degenerated fibroid. No significant free fluid IMPRESSION: Coarctation proximal descending thoracic aorta Dissection lower abdominal aorta extending into the right common iliac artery. Presumably this is chr onic but should be compared to prior imaging.
--- NOTE | 2022-02-16 21:09 | RAD REPORT ---
EXAM DESCRIPTION: [place] Single View02/16/2022 7:35 pm CLINICAL HISTORY: Chest pain COMPARISON: none FINDINGS: The lungs appear clear of acute infiltrate. The heart is normal size IMPRESSION: No acute abnormalities displayed
--- NOTE | 2022-02-16 23:15 | ER ---
Nurse's Notes [facility] Name: Dia Jones Age: 47 yrs Sex: Female : 1975 Arrival Date: 02/16/2022 Time: 18:33 Bed 4 Private MD: Diagnosis: Chest pain, unspecified;Abdominal pain, Generalized;Aortic dissection Presentation: 02/16 18:35 Chief complaint: Patient states: i had robert aortic dissection x1 year ago that my [facility] doctors tried to fix with meds and when that happened i had these same symptoms so I am worried its back, worse, or something. Coronavirus screen: Vaccine status: Patient reports being unvaccinated. Client denies travel out of the [place] in the last 14 days. Ebola Screen: Patient negative for fever greater than or equal to 101.5 degrees Fahrenheit, and additional compatible Ebola Virus Disease symptoms Patient denies exposure to infectious person. Patient denies travel to an Ebola-affected area in the 21 days before illness onset. Initial Sepsis Screen: Does the patient meet any 2 criteria? No. Patient's initial sepsis screen is negative. Does the patient have a suspected source of infection? No. Patient's initial sepsis screen is negative. Risk Assessment: Do you want to hurt yourself or someone else? Patient reports no desire to harm self or others. 18:35 Method Of Arrival: Ambulatory [facility] 18:35 Acuity: MELO 3 [facility] 02/17 01:19 Onset of symptoms was February 16, 2022 at 15:15. Triage Assessment: 02/16 18:39 General: Appears. [facility] 18:42 General: Behavior is calm, cooperative, appropriate for age. Pain: Complains of pain in [facility] chest and abdomen. Cardiovascular: Chest pain. PLATINUM AND PALLADIUM KETTLE TENDER: 18:42 LMP N/A - Irregular menses [facility] Historical: - Allergies: 18:39 No Known Allergies; [facility] - PMHx: 18:39 aortic abdominal disection; Hypertensive disorder; Hypercholesterolemia; thyroid [facility] disease; - PSHx: 18:39 csection x1; [facility] 18:42 ablation; uterine; [facility] - Immunization history:: Adult Immunizations up to date. - Social history:: Smoking status: Reported history of juuling and/or vaping. Screenin:45 Abuse screen: Denies threats or abuse. Nutritional screening: No deficits noted. aa5 Tuberculosis screening: No symptoms or risk factors identified. Fall Risk 18:[address] [facility] ED Fall Risk Assessment (Adult) History of falling in the last 3 months, aa5 including since admission Yes- single mechanical fall (1 pt) Confusion or Disorientation No (0 pts) Intoxicated or Sedated No (0 pts) Impaired Gait No (0 pts) Mobility Assist Device Used No (0 pt) Altered Elimination No (0 pt) Score/Fall Risk Level 0 - 2 = Low Risk. Assessment: 18:42 General: Appears uncomfortable, Behavior is calm, cooperative. Pain: Complains of pain aa5 in left lateral aspect of chest and lower abdomen Pain does not radiate. Pain currently is 7 out of 10 on a pain scale. Quality of pain is described as crampy, Pain began chest pain began 3 days ago and abd pain began 1-2 weeks ago that is intermittent. Is intermittent. Neuro: Level of Consciousness is awake, alert, obeys commands, Oriented to person, place, time, situation. Cardiovascular: Heart tones S1 S2 present Pulses are 3+ in right posterior tibial artery and left posterior tibial artery Edema is absent. Rhythm is regular. Respiratory: Airway is patent Respiratory effort is even, unlabored, Respiratory pattern is regular, symmetrical. GI: Abdomen is round non-distended, Bowel sounds present X 4 quads. Abd is soft and non tender X 4 quads. Reports lower abdominal pain, Patient currently denies diarrhea, nausea, vomiting. : No signs and/or symptoms were reported regarding the genitourinary system. EENT: No signs and/or symptoms were reported regarding the EENT system. Derm: Skin is pink, warm \T\ dry. Musculoskeletal: Range of motion: intact in all extremities, Reports pain in right knee from fall back in November 2021. 19:27 Reassessment: No changes from previously documented assessment. Patient and/or family kl updated on plan of care and expected duration. Pain level reassessed. Patient is alert, oriented x 3, equal unlabored respirations, skin warm/dry/pink. Patient states feeling better. pt up ambulatory to bathroom gait steady . 21:41 Reassessment: Patient appears in no apparent distress at this time. Patient and/or kl family updated on plan of care and expected duration. Pain level reassessed. Patient is alert, oriented x 3, equal unlabored respirations, skin warm/dry/pink. Patient states feeling better. 22:27 Reassessment: Patient and/or family updated on plan of care and expected duration. Pain ha1 level reassessed. Patient is alert, oriented x 3, equal unlabored respirations, skin warm/dry/pink. pain 6/10. notified care provider. Vital Signs: 18:35 BP 136 / 66; Pulse 78; Resp 16; Temp 98.6; Pulse Ox 100% ; Weight 74.84 kg; Height 4 jh5 ft. 11 in. (149.86 cm); Pain 8/10; 18:55 BP 148 / 67 RA; Pulse 72; aa5 18:57 BP 133 / 57 LA; aa5 21:41 BP 135 / 57; Pulse 65; Resp 16; Pulse Ox 100% on R/A; kl 22:32 BP 133 / 65; Pulse 63; Resp 18 S; Pulse Ox 96% on R/A; ha1 23:30 BP 133 / 62; Pulse 65; Resp 18 S; Pulse Ox 96% on R/A; ha1 23:47 BP 110 / 55; Pulse 58; Resp 18 S; Pulse Ox 98% on R/A; ha1 12/15 00:00 BP 132 / 57; Pulse 58; Pulse Ox 98% ; kl 00:05 BP 122 / 43; Pulse 56 LA; Pulse Ox 100% on R/A; kl 00:35 BP 115 / 50; Pulse 58; Resp 16; Pulse Ox 99% on R/A; Pain 0/10; kl 00:35 BP 110 / 56; Pulse 60; Resp 18; Pulse Ox 99% on R/A; kl 12/14 18:35 Body Mass Index 33.33 (74.84 kg, 149.86 cm) [facility] 1214 18:57 Provider notified of bilateral BP aa5 ED Course: 18:33 Patient arrived in ED. as 18:38 Carlene Goodwin FNP-C is PHCP. kb 18:38 Javon Rubio MD is Attending Physician. kb 18:39 Triage completed. 5 18:42 Arm band placed on right wrist. 5 18:45 Patient has correct armband on for positive identification. Placed in gown. Bed in low aa5 position. Call light in reach. Side rails up X2. Client placed on continuous cardiac and pulse oximetry monitoring. NIBP monitoring applied. 18:50 Initial lab(s) drawn, by me, sent to lab. Inserted saline lock: 18 gauge in right aa5 antecubital area, using aseptic technique. Blood collected. 18:57 Esperanza Kumar, RN is Primary Nurse. aa5 19:02 No provider procedures requiring assistance completed. Patient maintains SpO2 aa5 saturation greater than 95% on room air. 19:07 EKG done, by ED staff, reviewed by Carlene DAVID. ss 19:13 Report given to MARCI Don and MARCI Kirby. aa5 19:20 Primary Nurse role handed off by Esperanza Kumar RN wm 19:37 XRAY Chest (1 view) In Process Unspecified. EDMS 20:44 CT Aorta for Dissection In Process Unspecified. EDMS 21:58 Attending Physician role handed off by Javon Rubio MD kdr 21:58 Boone Aguilar MD is Attending Physician. kdr 22:10 Initiated transfer to [facility], spoke with Fern Mota. wm 23:33 Pt accepted for transfer by Dr. Lucian Power. wm 02/17 01:19 Patient transferred, IV remains in place. kl Administered Medications: 02/16 19:05 Drug: Zofran (Ondansetron) 4 mg Route: IVP; Site: right antecubital; mb9 19:06 Drug: morphine 4 mg Route: IVP; Infused Over: 4 mins; Site: right antecubital; mb9 22:58 Drug: Zofran (Ondansetron) 4 mg Route: IVP; Site: right antecubital; ha1 23:00 Drug: morphine 4 mg Route: IVP; Infused Over: 4 mins; Site: right antecubital; ha1 23:35 Drug: Cardene (niCARdipine) 5 mg/hr {Note: initiated at 2.5mg/hr.} Route: IV; Rate: kl calculated rate; Site: right antecubital; 02/17 00:04 Follow up: Response: Blood pressure is lowered; Rate change 2 mg/hr kl Medication: 01:19 VIS not applicable for this client. kl Outcome: 02/16 23:14 ER care complete, transfer ordered by . jayden 02/17 01:19 Transferred by ground EMS to [facility]. kl Condition: stable Discharge instructions given to patient, Instructed on the need for transfer, Demonstrated understanding of instructions. 01:20 Patient left the ED. yaneli Signatures: Dispatcher [employer] Carlene Dudley, INVESTMENTS MANAGER-Cristina INVESTMENTS MANAGER-Yaneth Clement, RN RN Boone Medeiros MD MD kdr Martinez, Amelia as Calderon, Audri, RN RN aa5 Mary Mitchell RN RN ss Marsh, Wendy wm Rees, Jessica, RN RN 5 Florencia Wyatt RN RN ha1 Malou Barrios RN RN mb9 Corrections: (The following items were deleted from the chart) 02/16 18:42 18:39 PSHx: ablation; monique Kellee 02/17 00:05 02/16 23:47 IV Status: Order to discontinue infusion yaneli groves
--- NOTE | 2022-02-16 23:15 | EDPHYS ---
Physician Documentation [facility] Name: Dia Jones Age: 47 yrs Sex: Female : 1975 Arrival Date: 02/16/2022 Time: 18:33 Bed 4 Private MD: ED Physician Boone Aguilar HPI: 02/16 23:11 This 47 yrs old Female presents to ER via Ambulatory with complaints of Chest Pain, kb Abdominal Pain, Vomiting. 23:11 The patient or guardian reports chest pain that is located primarily in the anterior kb chest wall. Onset: today. The pain radiates to abdomen. Associated signs and symptoms: Pertinent positives: abdominal pain. The chest pain is described as aching. Duration: The patient or guardian reports a single episode, that is still ongoing. Modifying factors: The symptoms are alleviated by nothing. the symptoms are aggravated by nothing. Severity of pain: At its worst the pain was moderate in the emergency department the pain is unchanged. The patient has not experienced similar symptoms in the past. The patient has not recently seen a physician. Pt reports chest and abd pain that feels similar to when she had a dissection in August 2020. . 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 - Social history:: Smoking status: Reported history of juuling and/or vaping. ROS: 22:49 Constitutional: Negative for fever, chills, and weight loss. kb 22:49 Cardiovascular: Positive for chest pain, Negative for edema, orthopnea, palpitations, paroxysmal nocturnal dyspnea. 22:49 Abdomen/GI: Positive for abdominal pain, nausea and vomiting, Negative for diarrhea. 22:49 All other systems are negative. Exam: 22:49 Constitutional: This is a well developed, well nourished patient who is awake, alert, kb and in no acute distress. Head/Face: Normocephalic, atraumatic. ENT: Moist Mucous membranes Cardiovascular: Regular rate and rhythm with a normal S1 and S2. No gallops, murmurs, or rubs. No pulse deficits. Respiratory: Respirations even and unlabored. No increased work of breathing. Talking in full sentences Skin: Warm, dry with normal turgor. Normal color. MS/ Extremity: Pulses equal, no cyanosis. Neurovascular intact. Full, normal range of motion. Neuro: Awake and alert, GCS 15, oriented to person, place, time, and situation. Moves all extremities. Normal gait. Psych: Awake, alert, with orientation to person, place and time. Behavior, mood, and affect are within normal limits. 22:49 ECG was reviewed by the Attending Physician. 22:49 Abdomen/GI: Inspection: abdomen appears normal, Bowel sounds: normal, Palpation: soft, in all quadrants, mild abdominal tenderness, in all quadrants. Vital Signs: 18:35 BP 136 / 66; Pulse 78; Resp 16; Temp 98.6; Pulse Ox 100% ; Weight 74.84 kg; Height 4 jh5 ft. 11 in. (149.86 cm); Pain 8/10; 18:55 BP 148 / 67 RA; Pulse 72; aa5 18:57 BP 133 / 57 LA; aa5 21:41 BP 135 / 57; Pulse 65; Resp 16; Pulse Ox 100% on R/A; kl 22:32 BP 133 / 65; Pulse 63; Resp 18 S; Pulse Ox 96% on R/A; ha1 23:30 BP 133 / 62; Pulse 65; Resp 18 S; Pulse Ox 96% on R/A; ha1 23:47 BP 110 / 55; Pulse 58; Resp 18 S; Pulse Ox 98% on R/A; ha1 1215 00:00 BP 132 / 57; Pulse 58; Pulse Ox 98% ; kl 00:05 BP 122 / 43; Pulse 56 LA; Pulse Ox 100% on R/A; kl 00:35 BP 115 / 50; Pulse 58; Resp 16; Pulse Ox 99% on R/A; Pain 0/10; kl 00:35 BP 110 / 56; Pulse 60; Resp 18; Pulse Ox 99% on R/A; kl 1214 18:35 Body Mass Index 33.33 (74.84 kg, 149.86 cm) 5 14 18:57 Provider notified of bilateral BP aa5 MDM: 18:38 Patient medically screened. kb 22:48 Data reviewed: vital signs, nurses notes. Data reviewed: I have discussed the patient's kb presentation/case with the attending Emergency Department Physician;. Data interpreted: Pulse oximetry: on room air is 100 %. Interpretation: normal. Counseling: I had a detailed discussion with the patient and/or guardian regarding: the historical points, exam findings, and any diagnostic results supporting the discharge/admit diagnosis, lab results, radiology results, the need to transfer to another facility. ED course: ERP recommends transfer for dissection and chest pain. 23:10 ED course: Pt accepted for transfer to [facility] ICU by Dr Power. Dr Power requests kb SBP to be maintained below 120. Cardene ordered and nurse informed of target SBP of 120. 02/16 18:47 Order name: Basic Metabolic Panel; Complete Time: 19:23 kb 02/16 18:47 Order name: CBC with Diff; Complete Time: 19:19 kb 02/16 18:47 Order name: Magnesium; Complete Time: 19:23 kb 02/16 18:47 Order name: NT PRO-BNP; Complete Time: 19:23 kb 02/16 18:47 Order name: PT-INR; Complete Time: 19:14 kb 02/16 18:47 Order name: Troponin HS; Complete Time: 19:23 kb 02/16 18:47 Order name: XRAY Chest (1 view); Complete Time: 21:14 kb 02/16 18:47 Order name: CT Aorta for Dissection; Complete Time: 21:14 kb 02/16 22:28 Order name: SARS-COV-2 Antigen Rapid; Complete Time: 23:22 wm 02/16 18:47 Order name: EKG; Complete Time: 18:47 kb 02/16 18:47 Order name: Cardiac monitoring; Complete Time: 18:57 kb 02/16 18:47 Order name: EKG - Nurse/Tech; Complete Time: 19:07 kb 02/16 18:47 Order name: IV Saline Lock; Complete Time: 18:57 kb 02/16 18:47 Order name: Labs collected and sent; Complete Time: 18:58 kb 02/16 18:47 Order name: O2 Per Protocol; Complete Time: 18:58 kb 02/16 18:47 Order name: O2 Sat Monitoring; Complete Time: 18:58 kb EC:49 Rate is 65 beats/min. Rhythm is regular. QRS [place] is Normal. MT interval is normal at kb 142 msec. QRS interval is normal at 84 msec. QT interval is normal at 455 msec. Administered Medications: 19:05 Drug: Zofran (Ondansetron) 4 mg Route: IVP; Site: right antecubital; mb9 19:06 Drug: morphine 4 mg Route: IVP; Infused Over: 4 mins; Site: right antecubital; mb9 22:58 Drug: Zofran (Ondansetron) 4 mg Route: IVP; Site: right antecubital; ha1 23:00 Drug: morphine 4 mg Route: IVP; Infused Over: 4 mins; Site: right antecubital; ha1 23:35 Drug: Cardene (niCARdipine) 5 mg/hr {Note: initiated at 2.5mg/hr.} Route: IV; Rate: kl calculated rate; Site: right antecubital; 02/17 00:04 Follow up: Response: Blood pressure is lowered; Rate change 2 mg/hr kl Disposition: 01:37 Co-signature as Attending Physician, Boone Aguilar MD I agree with the assessment and kdr plan of care. Disposition Summary: 02/16/22 23:14 Transfer Ordered Transfer Location: [facility] Reason: Higher level of care kb Condition: Stable kb Problem: new kb Symptoms: are unchanged kb Accepting Physician: Dr Power(02/17/22 01:20) kl Diagnosis - Chest pain, unspecified kb - Abdominal pain, Generalized kb - Aortic dissection kb Forms: - Medication Reconciliation Form kb - SBAR form kb Signatures: Dispatcher [employer] EDCarlene Hallman, AZEEM-C PEDIATRIC SPEECH THERAPIST-Yaneth Clement RN RN kl Rittger, Kevin, MD MD kdr Mickail, Joel, PA PA jmm Calderon, Audri, RN RN Gavi Munguia RN RN 5 Florencia Wyatt RN RN ha1 Breneman, Mary Beth RN RN mb9 Corrections: (The following items were deleted from the chart) 02/16 18:42 18:39 PSHx: ablation; jh5 jh5 02/17 01:20 02/16 23:14 Dr Power kb kl
[2022-02-16 23:17] LABS: SARS-CoV-2 Antigen Rapid Res Negative (Negative)
[2022-02-16] MEDS ORDERED: Nicardipine/NS 25 MG/250 ML KIT IV ONE (23:33)
[2022-02-17 01:24] VITALS: TEMP 98.6
[2022-02-17 01:35] VITALS: BP 110/56; O2SAT 99
--- NOTE | 2022-02-17 08:02 | EKG ---
Test Date: 2022-02-16 Test Time: 19:02:49 Contract Designer: ELEONORA MEASUREMENT RESULTS: Intervals: Rate: 65 WV: 142 QRSD: 84 QT: 438 QTc: 455 [place]: P: 35 WV: 142 QRS: 22 T: 67 INTERPRETIVE STATEMENTS: Normal sinus rhythm Anterior infarct, age undetermined Abnormal ECG No previous ECG available for comparison Electronically Signed On 02-17-22 08:01:39 SALESPERSON SEWING MACHINES by Homer Decker
== END 2022-02-17 01:20 | disposition short-term general hospital (02) ==
LOC: ER 18:32
DX: R07.89 Other chest pain (principal); I71.00 Dissection of unspecified site of aorta; R10.9 Unspecified abdominal pain
CPT/HCPCS: 36415; 71045; 71275; 74175; 80048; 83735; 83880; 84484; 85025; 85610; 87811; 93005; 96374; 96375; 99285; J2405; Q9967